=== PATIENT | female | born 2000 | race Two or more races ===

== ENCOUNTER 2021-11-26 18:25 | Emergency (ER) | payer SELFPAY ==
[~2021-11-26] VITALS: Ht 167.6 cm; Wt 61.0 kg
[2021-11-26 18:30] VITALS: BP 129/67
[2021-11-26] MEDS ORDERED: ibuprofen 200mg tablet PO ONE (19:40)
[2021-11-26] MEDS ORDERED: LIDOcaine 2% 10ml TOPICAL JELLY (Urojet) MM ONE (19:40)
--- NOTE | 2021-11-26 19:48 | NUR ---
po med given lidocain placed on bedside table for er provider
--- NOTE | 2021-11-26 20:18 | NUR ---
dressing applied to wound rt leg
== END 2021-11-26 20:20 | disposition home or self-care (01) ==
LOC: ER 18:26
DX: T24.131A Burn of first degree of right lower leg, initial encounter (principal); M79.661 Pain in right lower leg; V29.88XA Motorcycle rider (driver) (passenger) injured in other specified transport accidents, initial encounter; Y93.89 Activity, other specified; Y92.89 Other specified places as the place of occurrence of the external cause; Y99.8 Other external cause status
CPT/HCPCS: 16000; 99282